=== PATIENT | female | born 1970 | race Two or more races ===

== ENCOUNTER 2021-08-01 12:02 | Emergency (ER) | payer MEDICAID ==
[~2021-08-01] VITALS: Ht 160 cm; Wt 69.4 kg
--- NOTE | 2021-08-01 13:45 | NUR ---
PATIENT A/O X4, TONGAN/SRI LANKAN SPEAKING. C/O HEADACHE SINCE LAST NIGHT. VSS, PERRLA. BILATERAL EQUAL PACKAGING TECH UE. FULL ROM UPPER AND LOWER EXT. SYMETRICAL FACIAL EXPRESSION. SENSATION INTACT UPPER AND LOWER EXT.
[2021-08-01] MEDS ORDERED: IV NS 0.9% 1,000 ML BAG IV ONE (14:00)
[2021-08-01] MEDS ORDERED: SUMATRIPTAN SUCCINATE 6 MG/0.5 ML VIAL SQ ONE ×2 (14:00→14:17)
[2021-08-01] MEDS ORDERED: ONDANSETRON HCL/PF 4 MG/2 ML VIAL IVP ONE (14:00)
[2021-08-01] MEDS ORDERED: KETOROLAC TROMETHAMINE INJ 30 MG/ML VIAL IV ONE (14:00)
--- NOTE | 2021-08-01 14:00 | NUR ---
IV ACCESS ATTAINED LFA G#18, FLUSHING WELL.
[2021-08-01] MEDS ORDERED: ONDANSETRON HCL/PF 4 MG/2 ML VIAL ONE (14:17)
[2021-08-01] MEDS ORDERED: KETOROLAC TROMETHAMINE INJ 30 MG/ML VIAL ONE (14:17)
--- NOTE | 2021-08-01 14:24 | NUR ---
IV FLUIDS OF 0.9NS 1L BOLUS STARTED. END TIME 1455H.
[2021-08-01 16:06] VITALS: BP 128/76
== END 2021-08-01 16:05 | disposition home or self-care (01) ==
LOC: ER 12:25
DX: G44.209 Tension-type headache, unspecified, not intractable (principal)
CPT/HCPCS: 96361; 96372; 96374; 96375; 99284; J1885; J2405; J3030; J7030

== ENCOUNTER 2021-09-27 17:46 | Emergency (ER) | payer MEDICAID ==
[~2021-09-27] VITALS: Ht 157.5 cm; Wt 64.5 kg
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
--- NOTE | 2021-09-27 18:30 | NUR ---
PATIENT TAKEN CT [facility]
--- NOTE | 2021-09-27 18:41 | NUR ---
PATIENT BACK FROM CT
--- NOTE | 2021-09-27 19:05 | NUR ---
rec'd report from yinka Maki for cuauhtemoc
[2021-09-27] MEDS ORDERED: CYCLOBENZAPRINE 10 MG TABLET ONE (19:18)
[2021-09-27] MEDS ORDERED: KETOROLAC TROMETHAMINE INJ 30 MG/ML VIAL ONE (19:18)
[2021-09-27] MEDS ORDERED: CYCLOBENZAPRINE 10 MG TABLET PO ONE (19:30)
[2021-09-27] MEDS ORDERED: KETOROLAC TROMETHAMINE INJ 60 MG/2 ML VIAL IM ONE (19:30)
[2021-09-27] MEDS ORDERED: CYCL5TAB PO (19:45)
[2021-09-27] MEDS ORDERED: IBUP-1957 PO (19:45)
--- NOTE | 2021-09-27 19:49 | NUR ---
Patient discharged to home in stable condition. Written and verbal after care instructions given. Patient verbalizes understanding of instruction.Pt ambulatory with a steady gait
[2021-09-27 20:06] VITALS: BP 110/72
== END 2021-09-27 19:49 | disposition home or self-care (01) ==
LOC: ER 17:53
DX: M54.50 Low back pain, unspecified (principal); Z79.899 Other long term (current) drug therapy
CPT/HCPCS: 74176; 96372; 99284; J1885